=== PATIENT | male | born 1980 | race Hispanic/Latino ===

== ENCOUNTER 2022-10-24 02:38 | Emergency (ER) | payer OTHER ==
[~2022-10-24] VITALS: Ht 185.4 cm; Wt 203.2 kg
[2022-10-24 03:11] VITALS: PULSE 88; RESP 18; O2SAT 99
[2022-10-24 03:15] LABS: APPEARANCE,URINE CLEAR (CLEAR); BILIRUBIN,URINE NEGATIVE (NEGATIVE); COLOR,URINE LIGHT-YELLOW (YELLOW); GLUCOSE, URINE (UA) NEGATIVE (NEGATIVE); KETONES,URINE NEGATIVE (NEGATIVE); LEUKOCYTE ESTERASE ,URINE NEGATIVE Leu/uL (NEGATIVE); NITRATE,URINE NEGATIVE (NEGATIVE); OCCULT BLOOD,URINE LARGE (NEGATIVE); PROTEIN,URINE NEGATIVE (NEGATIVE); UROBILINOGEN,URINE 0.2 mg/dL (0.2-1.0)
[2022-10-24 03:16] LABS: ADD UA MICROSCOPIC YES
[2022-10-24 03:18] LABS: MUCUS,URINE RARE LPF (None Seen); RBC,URINE TNTC /HPF (0-1); SQUAMOUS EPITHELIAL CELL,UR RARE /HPF (0-2)
[2022-10-24] MEDS ORDERED: 0.9%NACL 1000ML 1,000 ML IV ONE (03:30)
[2022-10-24] MEDS ORDERED: METOCLOPRAMIDE 10 MG/2 ML VIAL IVP ONE (03:30)
[2022-10-24] MEDS ORDERED: FAMOTIDINE 20MG TAB PO ONE (03:30)
[2022-10-24] MEDS ORDERED: KETOROLAC 30MG VIAL (30MG/ML) IVP ONE (03:30)
[2022-10-24 03:51] LABS: BASOPHILS # (AUTO) 0.05 K/uL (0.00-0.20); BASOPHILS % (AUTO) 0.4 % (0.0-5.0); EOSINOPHILS # (AUTO) 0.08 K/uL (0.00-0.70); EOSINOPHILS % (AUTO) 0.6 % (0.0-8.0); HEMATOCRIT 42.6 % (42-54); IMMATURE GRANULOCYTE ABSOLUTE 0.07 K/uL (0-1); LYMPHOCYTES # (AUTO) 1.4 K/uL (1.0-4.8); MEAN CORPUSCULAR HEMOGLOBIN 29.2 pg (27.0-33.0); MEAN CORPUSCULAR HGB CONC 33.6 g/dL (32.0-36.0); MEAN CORPUSCULAR VOLUME 86.9 fL (79-99); MONOCYTES # (AUTO) 0.8 K/uL (0.1-1.0); MONOCYTES % (AUTO) 6.2 % (3.0-13.0); NEUTROPHILS # (AUTO) 10.1 K/uL (1.8-7.7); NEUTROPHILS % (AUTO) 81.2 % (40.0-77.0); PLATELET COUNT (AUTO) 187 K/uL (130-400); WHITE BLOOD COUNT (AUTO) 12.5 K/uL (4.8-10.8)
[2022-10-24 04:01] LABS: CREATININE 1.4 mg/dL (0.5-1.5); POTASSIUM 4.5 mmol/L (3.5-5.1)
[2022-10-24 04:12] LABS: ALBUMIN 3.6 g/dL (3.5-5.0); BILIRUBIN,TOTAL 0.4 mg/dL (0.2-1.0); TOTAL PROTEIN, SERUM 7.5 g/dL (6.0-8.3)
[2022-10-24] MEDS ORDERED: TAMS-1 PO (05:17)
[2022-10-24] MEDS ORDERED: KETO10 PO (05:17)
[2022-10-24] MEDS ORDERED: FAMO-136 PO (05:17)
[2022-10-24] MEDS ORDERED: METO-296 PO (05:17)
[2022-10-24 05:28] VITALS: BP 158/97
== END 2022-10-24 06:07 | disposition home or self-care (01) ==
LOC: EDH 02:38
DX: N20.0 Calculus of kidney (principal)
CPT/HCPCS: 99285; 74176; 96374; 96361; 96375; 80053; 83690; 85025; 81001; 36415; J7030; J1885; J2765

== ENCOUNTER 2024-12-10 04:52 | Emergency (ER) | payer BC, OTHER ==
[~2024-12-10] VITALS: Ht 182.9 cm; Wt 203.2 kg
[~2024-12-10 04:52] MED LIST: FAMO-136 PO; KETO10 PO; METO-296 PO; TAMS-55 PO
--- NOTE | 2024-12-10 05:38 | ERN ---
ED Note History of Present Illness Stated Complaint: C/O BACK PAIN TO RIGHT SIDE Chief Complaint: Back Pain-No Injury Time Seen by MD: 05:24 Dictation: This is a 44-year-old extremely obese male with a BMI of 61 who presents to the emergency room with severe right-sided flank pain. He stated that he went to bed and acutely began experiencing the pain and he had similar pain in the past when he had a kidney stone and hence he came in for evaluation. He denied any fever chills or rigors. He also denied any hematuria. He stated that he attempted to urinate and only past small amount of urine. Temperature 98.7 pulse 60 respirations 20 blood pressure 189/103 pulse oximetry 95% on room air History of nephrolithiasis Allergies: Coded Allergies: No Known Drug Allergies (Unverified Allergy, Unknown, 10/24/22) Home Meds Active Scripts Famotidine (Pepcid) 20 Mg Tablet, 20 MG PO BID, #60 TAB 2 Refills Prov:MIKE CASH Sr., MD 10/24/22 Metoclopramide HCl (Reglan) 10 Mg Tablet, 10 MG PO Q6HPRN PRN for NAUSEA, #15 TAB 1 Refill Prov:MIKE CASH Sr., MD 10/24/22 Ketorolac Tromethamine (Toradol) 10 Mg Tab, 10 MG PO TIDP PRN for PAIN, #6 TAB 0 Refills Prov:MIKE CASH Sr., MD 10/24/22 Tamsulosin HCl (Flomax) 0.4 Mg Cap.er.24h, 0.4 MG PO DAILYDINNER, #5 CAPSULE.DR 1 Refill Prov:MIKE CASH Sr., MD 10/24/22 Past Medical History Past Medical History: No Pertinent History Surgical History: None Family History: Negative RN Note Reviewed/Agreed w/PFSH: Yes Review of System Dictation Constitutional: Negative for fever,chills, and weight loss Eyes: Negative for injury, pain,redness, and discharge ENT: Negative for injury,pain or swelling Cardiovascular: Negative for chest pain, palpitations, and edema Respiratory: Negative for shortness of breath, cough, and wheezing, Abdomen/GI: Negative for abdominal pain, nausea, vomiting, diarrhea, and constipation Back: Negative for injury and pain : Negative for injury, bleeding and discharge positive for severe right-sided flank pain MS/Extremity: Negative for injury and deformity Skin: Negative for rash, and discoloration Neuro: Negative for headache, weakness, numbness, tingling, and seizure Psych: Negative for suicide ideation, homicidal ideation, and hallucinations Initial Vital Sign VS Vital Signs Date Time Temp Pulse Resp B/P (MAP) Pulse Ox O2 Delivery O2 Flow Rate FiO2 12/10/24 04:54 98.8 60 20 189/103 95 Room Air Physical Exam Dictation General: awake, alert, NAD extremely obese male Head/Face: Normocephalic, atraumatic Eyes: PERRL, EOMI, vision at baseline ENT: oral cavity clear, TMs clear, no signs of infection Neck: Trachea midline, supple, no nuchal rigidity Cardiovascular: RRR, normal S1/S2, No MRGs, no JVD Respiratory: CTAB, no respiratory distress, No rales or wheezes Abdomen: Soft, non-tender, non-distended, normal bowel sounds, no guarding or rebound. Skin: Warm, dry, normal turgor, no rash MS/Extremity: Pulses equal, no cyanosis, neurovascular intact, FROM Neuro: COAx4, GCS 15, strength 5/5, CN 2-12 intact, normal cerebellar exam, normal gait, Psych: Normal behavior, mood, and affect normal Extremities-trace edema without any palpable cords, Homans sign is negative Results (Laboratory/Radiology) Laboratory/Radiology Laboratory Tests Test 12/10/24 04:47 12/10/24 05:58 12/10/24 07:01 Urine Color YELLOW (YELLOW) Urine Appearance CLOUDY (CLEAR) H Urine pH 5.0 (5.0-8.0) Urine Specific [place] 1.026 (1.001-1.031) Urine Protein 20 mg/dL (NEGATIVE) H Urine Glucose (UA) NEGATIVE mg/dL (NEGATIVE) Urine Ketones NEGATIVE mg/dL (NEGATIVE) Urine Occult Blood LARGE (NEGATIVE) H Urine Nitrate NEGATIVE (NEGATIVE) Urine Bilirubin NEGATIVE mg/dL (NEGATIVE) Urine Urobilinogen 0.2 mg/dL (0.2-1.0) Urine Leukocyte Esterase NEGATIVE Yulia/uL Urine RBC TNTC /HPF (0-1) H Urine WBC 11-25 /HPF (0-1) H Urine Squamous Epithelial Cells RARE /HPF (0-2) Urine Bacteria None /HPF (None Seen) White Blood Count 13.2 K/uL (4.8-10.8) H Red Blood Count 4.88 MIL/uL (4.50-6.20) Hemoglobin 14.4 g/dL (14.0-18.0) Hematocrit 43.4 % (42-54) Mean Corpuscular Volume 88.9 fL (79-99) Mean Corpuscular Hemoglobin 29.5 pg (27.0-33.0) Mean Corpuscular Hemoglobin Concent 33.2 g/dL (32.0-36.0) Red Cell Distribution Width 13.1 % (11.0-15.5) Platelet Count 188 K/uL (130-400) Mean Platelet Volume 11.6 fL (7.5-10.5) H Immature Granulocyte % (Auto) 0.4 % (0-1) Neutrophils (%) (Auto) 81.6 % (40.0-77.0) H Lymphocytes (%) (Auto) 10.9 % (21.0-51.0) L Monocytes (%) (Auto) 5.4 % (3.0-13.0) Eosinophils (%) (Auto) 1.4 % (0.0-8.0) Basophils (%) (Auto) 0.3 % (0.0-5.0) Neutrophils # (Auto) 10.8 K/uL (1.8-7.7) H Lymphocytes # (Auto) 1.4 K/uL (1.0-4.8) Monocytes # (Auto) 0.7 K/uL (0.1-1.0) Eosinophils # (Auto) 0.18 K/uL (0.00-0.70) Basophils # (Auto) 0.04 K/uL (0.00-0.20) Absolute Immature Granulocyte (auto 0.05 K/uL (0-1) Nucleated Red Blood Cells 0.0 % (0.0-0.19) Sodium Level 134 mmol/L (136-145) L Potassium Level 4.3 mmol/L (3.5-5.1) Chloride Level 102 mmol/L (101-111) Carbon Dioxide Level 26 mmol/L (21-32) Blood Urea Nitrogen 18 mg/dL (7-18) Creatinine 1.0 mg/dL (0.5-1.3) Glomerular Filtration Rate Calc 95 mL/min (>90) Random Glucose 129 mg/dL (70-105) H Total Calcium 8.6 mg/dL (8.5-10.1) Labs Reviewed?: Yes ED Course ED Course Orders Procedure Category Date Status Time Urinalysis Profile LAB 12/10/24 Complete 05:36 Cbc With Differential LAB 12/10/24 Complete 05:36 Ketorolac PHA 12/10/24 Complete Tromethamine 30mg/Ml 06:00 0.9%Nacl 1000ml (Ns PHA 12/10/24 Complete 1000ml) 06:00 Culture Urine FELISHA 12/10/24 In Process 06:06 Ct Abd/Pel Wo Con CT 12/10/24 Resulted Renal/Appy 06:18 Basic Metabolic Panel LAB 12/10/24 Complete 06:39 Current Medications Medications (Trade) Dose Ordered Sig/Michelle Route PRN Reason Start Time Stop Time Status Last Admin Dose Admin Ketorolac Tromethamine (toRADol) 30 mg ONCE ONCE IVP 12/10/24 06:00 12/10/24 06:01 DC 12/10/24 06:02 Sodium Chloride 1,000 ml @ 0 mls/hr ONCE ONCE IV 12/10/24 06:00 12/10/24 06:01 DC 12/10/24 06:01 Vital Signs Date Time Temp Pulse Resp B/P (MAP) Pulse Ox O2 Delivery O2 Flow Rate FiO2 12/10/24 04:54 98.8 60 20 189/103 95 Room Air We will perform diagnostic labs, advanced imaging and administer medications according to the patient's complaint. Once the results are available, will review and personally interpreted the labs to rule out any acute life- threatening emergency the trach require immediate intervention and treatment. I will then re-evaluate the patient after treatment and diagnostic exams have return to determine whether the patient requires any further testing, can safely be discharged home or need further admission to hospital for additional treatment and evaluation. Medical Decision Making MDM Differential diagnosis: Renal colic, pyelonephritis, hydronephrosis, lumbago, sciatica, constipation This is a 44-year-old extremely obese male with a BMI of 61 who presents to the emergency room with severe right-sided flank pain. He stated that he went to bed and acutely began experiencing the pain and he had similar pain in the past when he had a kidney stone and hence he came in for evaluation. He denied any fever chills or rigors. He also denied any hematuria. He stated that he attempted to urinate and only past small amount of urine. Temperature 98.7 pulse 60 respirations 20 blood pressure 189/103 pulse oximetry 95% on room air History of nephrolithiasis 6:20 a.m. urinalysis is significant for occult blood and RBCs. CBC BNP 7 are all pending at this time CT scan of the abdomen and pelvis done to evaluate for the size of the stone if any and for any evidence of hydronephrosis. Rationale: Tests considered and ordered secondary to shared decision making include: Previous outside records reviewed: Old ER visits. Risk of complication and/or morbidity or mortality of patient management: None Medications-Per medication reconciliation Need for hospitalization: Patient does not meet criteria for hospitalization. Need for emergency major/minor surgery: No There are no social concerns with this patient. Prescription drug management Prescriptions will include symptomatic care Patient's prior external medical records from other ER visits were reviewed by me as indicated. Prior testing and results from previous visits were reviewed. Prior tests were taken into account with medical decision making and resource utilization, independent historian/historians were used to obtain complete medical history. I independently interpreted the test that were performed, results were reviewed by me and considered findings on radiology if ordered. Medical management and examination interpretation discussions were had by me with other qualified healthcare professionals as indicated for the patient's care. Dr. Low: I took over care of the patient at 7:[address] read and disposition. CT shows a 2 mm right-sided calculus in the UVJ with mild hydronephrosis. Consistent with the presentation. Vitals are stable. Pain is controlled. No vomiting. No KRYSTAL. No signs of SIRS or sepsis. No signs of infected stone. Stable for discharge. We will DC with a prescription for ibuprofen, [place] tabs, Zofran. We will recommend urology follow up. CT read: Tiny 2 mm calculus in the right UVJ with mild right-sided hydroureteronephrosis. No other renal or ureteric calculus. The appendix, terminal ileum and ileocecal junction appear unremarkable. No inflammatory bowel wall thickening. Mild hepatomegaly with fatty infiltration of the pancreas. The gallbladder and pancreas appear unremarkable. Moderate amount of fecal residue in the cecum and ascending and proximal transverse colon without inflammatory bowel wall thickening. Compared to the prior study, this study redemonstrates tiny 2 mm calculus in the right vesicoureteric junction with persistent mild right-sided hydroureteronephrosis. Problem List Problem List: (1) Renal colic on right side (2) Nephrolithiasis DX & DISP Disposition: Discharge Departure Impression: Primary Impression: Renal colic on right side Additional Impression: Nephrolithiasis Condition: Stable Scripts Ondansetron (Ondansetron Odt) 4 Mg Tab.rapdis 1 TAB PO Q6HPRN PRN for nausea/vomiting for 4 Days, #16 TAB 0 Refills Prov: TATE LOW DO 12/10/24 Hydrocodone/Acetaminophen (Hydrocodon-Acetaminophen 5-325) 5 Mg-325 Mg Tablet 1 TAB PO TIDP PRN for pain for 5 Days, #15 TAB 0 Refills Prov: TATE LOW DO 12/10/24 Ibuprofen (Ibuprofen 800 mg Tab) 800 Mg Tab 800 MG PO Q6H PRN for PAIN, #30 TAB Prov: TATE LOW DO 12/10/24 Additional Instructions: You have a kidney stone on the right side. It is 2 mm. These often pass on their own. Sometimes, they may need further procedures or follow up. I have given you a referral to a urologist. Please call to make an appointment. For pain, I recommend that you take 800 mg of ibuprofen up to 3 times a day. For severe pain that does not respond to the ibuprofen, I have prescribed [place] tabs. You can take one every 6 hours as needed for severe pain. I have prescribed ondansetron dissolvable tabs to use for nausea and vomiting. Drink plenty of liquids. Reduce salt intake. Please return to the emergency department if you develop high fevers, persistent pain despite the pain medication, persistent vomiting, or any other concerning symptoms. Patient and the caregiver have been informed of all the diagnostic tests and the imaging conducted during the today's visit to the emergency room and has verbalized understanding of the results I have personally reviewed and interpreted all diagnostic exams performed here in the ER today as well as the vital signs documented by the nursing staff. The patient is now being discharged to home and should follow up with the primary care physician or the specialist as directed by the ER staff. Follow-up with primary care provider in 1 to 2 days. Take medications as directed here in the emergency room. Okay to continue home medications unless otherwise discussed during your visit in the emergency room today. Return to your nearest emergency room if symptoms worsen or if there is no improvement. Call 911 if you need immediate assistance. Take Tylenol or Motrin [id number] as needed and if no contraindications are present. Increase oral hydration. A wound culture or urine culture was ordered here in the emergency room department please follow-up with primary care provider and advise them to get repeat ports from our facility. If you had any Jayy wrap/splints that were applied here, please do not remove them until you see your primary care or specialty. Referrals: SELF,REFERRAL (PCP) [facility] COR[facility]Z [facility] Dec 10, 2024 05:38 TATE LOW DO Dec 10, 2024 07:34
[2024-12-10 06:01] LABS: APPEARANCE,URINE CLOUDY (CLEAR); GLUCOSE, URINE (UA) NEGATIVE (NEGATIVE); LEUKOCYTE ESTERASE ,URINE NEGATIVE Leu/uL (NEGATIVE); NITRATE,URINE NEGATIVE (NEGATIVE); OCCULT BLOOD,URINE LARGE (NEGATIVE)
[2024-12-10] MEDS: 0.9%NACL 1000ML 1,000 ML IV ONE (06:01)
[2024-12-10 06:02] LABS: ADD UA MICROSCOPIC YES
[2024-12-10 06:04] LABS: SQUAMOUS EPITHELIAL CELL,UR RARE /HPF (0-2)
[2024-12-10 06:37] LABS: IMMATURE GRANULOCYTE ABSOLUTE 0.05 K/uL (0-1); NUCLEATED RED BLOOD CELLS 0.0 % (0.0-0.19); PLATELET COUNT (AUTO) 188 K/uL (130-400); RED BLOOD CELL COUNT(AUTO) 4.88 MIL/uL (4.50-6.20); RED CELL DISTRIBUTION WIDTH 13.1 % (11.0-15.5); WHITE BLOOD COUNT (AUTO) 13.2 K/uL (4.8-10.8)
[2024-12-10 07:17] LABS: CREATININE 1.0 mg/dL (0.5-1.3); GLOMERULAR FILTR. RATE CALC 95.0 mL/min (>90); GLUCOSE,RANDOM 129.0 mg/dL (70-105); SODIUM SERUM 134.0 mmol/L (136-145); UREA NITROGEN, BLOOD 18.0 mg/dL (7-18)
--- NOTE | 2024-12-10 07:26 | HMCIMG ---
EXAM: CT Abdomen and Pelvis without V contrast CLINICAL HISTORY: Renal colic .Evaluate for hydronephrosis TECHNIQUE: Thin collimated axial CT images of the abdomen and pelvis were obtained with sagittal and coronal reformatted images also submitted. CT scan is done according to ALARA (As Low As Reasonably Achievable). CONTRAST: None COMPARISON: Prior CT abdomen dated October 24, 2022 FINDINGS: Unremarkable visualized lung parenchyma. Mild hepatomegaly with diffuse fatty infiltration of liver. No focal abnormality within the liver, gallbladder, pancreas, spleen, or adrenal glands. Tiny 2 mm calculus in the right vesicoureteric junction with mild right-sided hydroureteronephrosis.No other renal or ureteric calculus.Moderate fecal residue in the cecum and ascending and proximal transverse colon. There is no obvious bowel wall thickening. Bowel loops are normal in caliber without evidence of obstruction or ileus. The appendix is normal. There is no abnormality within the urinary bladder. Unremarkable reproductive organs. Abdominal and pelvic vessels are patent. No lymphadenopathy. No free fluid. There is no acute osseous abnormality. IMPRESSIONS: Tiny 2 mm calculus in the right UVJ with mild right-sided hydroureteronephrosis. No other renal or ureteric calculus. The appendix, terminal ileum and ileocecal junction appear unremarkable. No inflammatory bowel wall thickening. Mild hepatomegaly with fatty infiltration of the pancreas. The gallbladder and pancreas appear unremarkable. Moderate amount of fecal residue in the cecum and ascending and proximal transverse colon without inflammatory bowel wall thickening. Compared to the prior study, this study redemonstrates tiny 2 mm calculus in the right vesicoureteric junction with persistent mild right-sided hydroureteronephrosis. /Manor
[2024-12-10] MEDS ORDERED: ONDA-243 PO (07:31)
[2024-12-10] MEDS ORDERED: HYDR-4060 PO (07:31)
[2024-12-10] MEDS ORDERED: IBUP-2077 PO (07:31)
[2024-12-10 08:08] VITALS: BP 140/74; PULSE 66; RESP 20; TEMP 98.7; O2SAT 97
[2024-12-10] MEDS: HYDROcodone/APAP 5/325 1 TAB TABLET PO ONE (08:26)
== END 2024-12-10 08:29 | disposition home or self-care (01) ==
LOC: EDH 04:52
DX: N13.2 Hydronephrosis with renal and ureteral calculous obstruction (principal)
CPT/HCPCS: 99284; 74176; 96374; 80048; 85025; 87086; 81001; 36415; 96376; J1885 ×2; J7030